=== PATIENT | male | born 1945 | race African-American/Black ===

== ENCOUNTER 2024-08-25 11:28 | Inpatient (IN) ==
[2024-08-25 16:03] LABS: ABS Eosinophils 0.1 10^3/uL (0.0-0.5); ABS Lymphocytes 1.6 10^3/uL (1.0-4.8); ABS Monocytes 0.4 10^3/uL (0.0-1.1); ABS Neutrophils 4.3 10^3/uL (1.5-7.6); ABS Nucleated RBC 0.01 10^3/ul; Hematocrit 34.6 % (38-53); Hemoglobin 11.3 g/dL (13.2-16.3); Lymphocyte % 25.1 %; Mean Corpuscular Hgb Conc 32.6 g/dL (31-36); Mean Corpuscular Volume 86.1 fL (80-97); Mean Platelet Volume 7.2 fL (7.5-11.2); Nucleated Red Blood Cells % 0.2 %/100WBC (0.0-0.8); Platelet Count 346 10^3/uL (150-450); Red Blood Count 4.02 10^6/uL (4.06-5.63); Red Cell Distribution Width 16.3 % (12-17); White Blood Count 6.4 10^3/uL (3.6-10.2)
[2024-08-25 16:07] LABS: INR 1.09 (0.85-1.14)
[2024-08-25 17:29] LABS: ALT 21 U/L (7-52); Albumin 4.1 g/dL (3.5-5.7); Albumin/Globulin Ratio 1.4 (1-3); Alkaline Phosphatase 133 U/L (35-149); Blood Urea Nitrogen 35 mg/dL (6-24); CO2 Carbon Dioxide 26 mmol/L (22-32); Calcium 9.7 mg/dL (8.6-10.3); Chloride 105 mmol/L (101-111); Globulin 2.9 g/dL (2-4); Glucose 74 mg/dL (70-100); Sodium 137 mmol/L (135-145); Total Bilirubin 0.5 mg/dL (0.2-1.0); eGFR CKD-EPI 51.4 (>60)
[2024-08-25 17:31] LABS: Anion Gap 6 mmol/L (2-16)
[2024-08-25 18:26] LABS: Hepatitis C Antibody Reactive (Negative)
[2024-08-25] MEDS: HYDROmorphone 0.5 MG/0.5 ML SYRINGE IV SLOW PU PRN (18:32)
[2024-08-25 19:09] LABS: Potassium Redraw 4.4 mmol/L (3.5-5.0)
[2024-08-25] MEDS: Senna TAB 8.6 mg TAB PO SCH (21:24)
[2024-08-25] MEDS: Heparin 5000 UNITS/ML 1 mL VIAL SUBCUT SCH (21:26)
[2024-08-25] MEDS: Polyethylene Glycol 3350 17 GM PACKET PO SCH (21:26)
[2024-08-26 06:25] LABS: Hematocrit 33.9 % (38-53); Mean Corpuscular Hemoglobin 27.5 pg (27-33); Mean Corpuscular Hgb Conc 32.4 g/dL (31-36); Mean Corpuscular Volume 84.9 fL (80-97); Mean Platelet Volume 7.6 fL (7.5-11.2); Platelet Count 329 10^3/uL (150-450); Red Cell Distribution Width 16.7 % (12-17); White Blood Count 5.8 10^3/uL (3.6-10.2)
[2024-08-26 06:32] LABS: Calcium 8.9 mg/dL (8.6-10.3); Creatinine, Serum 1.42 mg/dL (0.67-1.17); Potassium 4.5 mmol/L (3.5-5.0); eGFR CKD-EPI 50.6 (>60)
[2024-08-26] MEDS: Buprenorp/Nalox 8-2 MG FILM SL SCH (08:18)
[2024-08-26] MEDS ORDERED: Albuterol HFA INHALER 8 gm MDI INH PRN (15:19)
[2024-08-27 06:08] LABS: ABS Eosinophils 0.1 10^3/uL (0.0-0.5); ABS Lymphocytes 1.8 10^3/uL (1.0-4.8); ABS Monocytes 0.4 10^3/uL (0.0-1.1); ABS Neutrophils 4.1 10^3/uL (1.5-7.6); Eosinophil % 1.9 %; Hemoglobin 11.2 g/dL (13.2-16.3); Mean Corpuscular Hemoglobin 27.3 pg (27-33); Mean Corpuscular Hgb Conc 32.2 g/dL (31-36); Mean Corpuscular Volume 84.9 fL (80-97); Mean Platelet Volume 7.7 fL (7.5-11.2); Nucleated Red Blood Cells % 0.1 %/100WBC (0.0-0.8); Platelet Count 369 10^3/uL (150-450); Red Blood Count 4.12 10^6/uL (4.06-5.63); Red Cell Distribution Width 16.3 % (12-17); White Blood Count 6.5 10^3/uL (3.6-10.2)
[2024-08-27 06:24] LABS: Calcium 9.5 mg/dL (8.6-10.3); Creatinine, Serum 1.34 mg/dL (0.67-1.17); Magnesium 2.1 mg/dL (1.9-2.7); Potassium 4.5 mmol/L (3.5-5.0); eGFR CKD-EPI 54.2 (>60)
[2024-08-27] MEDS ORDERED: Bupivacaine 0.25% EPI 200,000 30 ML SDV ONE (07:30)
[2024-08-27] MEDS ORDERED: ceFAZolin 2 GM PREMIX 2 GM/50 ML BAG ONE (08:04)
[2024-08-27] MEDS ORDERED: Midazolam 2 mg/2 ml VIAL 1 mg/ml 2 ml VIAL (2 mg) ONE (08:26)
[2024-08-27] MEDS ORDERED: fentaNYL 100 mcg/2 ml 50 MCG/ML VIAL ONE ×7 (08:26→12:45)
[2024-08-27] MEDS ORDERED: Lidocaine 2% PF 5 ML VIAL ONE ×2 (08:26→09:38)
[2024-08-27] MEDS ORDERED: Rocuronium 50 mg VIAL 10 mg/ml 5 ml VIAL (50 mg) ONE (08:47)
[2024-08-27] MEDS ORDERED: Dexamethasone IV 4 MG/ML VIAL 1 ml VIAL ONE (08:47)
[2024-08-27] MEDS ORDERED: Ondansetron 4 mg VIAL 2 MG/ML 2 ml VIAL ONE (08:47)
[2024-08-27] MEDS ORDERED: Propofol 10 MG/ML 20 ML BTL ONE (08:47)
[2024-08-27] MEDS ORDERED: Dexmedetomidine 200 mcg/2 ml 2 ml VIAL (200 mcg) ONE (09:29)
[2024-08-27] MEDS ORDERED: Ondansetron 4 mg VIAL 2 MG/ML 2 ml VIAL IV PRN (09:54)
[2024-08-27] MEDS ORDERED: Naloxone 0.4 mg VIAL 0.4 mg/ml 1 ml VIAL IV PRN (09:54)
[2024-08-27] MEDS ORDERED: Bupivacaine 0.25% w/EPI 10 ML SDV ONE (11:28)
[2024-08-27] MEDS: fentaNYL 100 mcg/2 ml 50 MCG/ML VIAL IV PRN ×2 (11:57→12:55)
[2024-08-27] MEDS ORDERED: Acetaminophen IV 1 GM/100ML 1,000 MG/100 ML BAG IV ONE (12:51)
[2024-08-27] MEDS: ceFAZolin 1 GM ADVAN 1 GM in NS 0.9% 50 ML 50 ML IVPB SCH (16:45)
[2024-08-28] MEDS: HYDROmorphone 0.5 MG/0.5 ML SYRINGE IV SLOW PU PRN (00:30)
[2024-08-28] MEDS ORDERED: HYDROmorphone 0.5 MG/0.5 ML SYRINGE IV SLOW PU PRN (00:37)
[2024-08-28 06:01] LABS: Hematocrit 32.2 % (38-53); Hemoglobin 10.6 g/dL (13.2-16.3); Mean Corpuscular Hemoglobin 27.8 pg (27-33); Mean Corpuscular Hgb Conc 32.9 g/dL (31-36); Mean Corpuscular Volume 84.7 fL (80-97); Mean Platelet Volume 7.7 fL (7.5-11.2); Platelet Count 369 10^3/uL (150-450); Red Cell Distribution Width 16.4 % (12-17); White Blood Count 8.2 10^3/uL (3.6-10.2)
[2024-08-28 06:09] LABS: Calcium 8.7 mg/dL (8.6-10.3); Creatinine, Serum 1.45 mg/dL (0.67-1.17); Magnesium 1.9 mg/dL (1.9-2.7); Potassium 4.2 mmol/L (3.5-5.0); eGFR CKD-EPI 49.3 (>60)
[2024-08-28 07:18] LABS: ABS Lymphocytes 1.2 10^3/uL (1.0-4.8); ABS Monocytes 0.7 10^3/uL (0.0-1.1); ABS Neutrophils 6.3 10^3/uL (1.5-7.6); ABS Nucleated RBC 0.01 10^3/ul; Eosinophil % 0.2 %; Lymphocyte % 14.1 %; Nucleated Red Blood Cells % 0.1 %/100WBC (0.0-0.8)
[2024-08-28] MEDS: Lactated Ringers 1000 ml BAG 1,000 ML IV SCH (09:01)
[2024-08-29 06:22] LABS: ABS Eosinophils 0.1 10^3/uL (0.0-0.5); ABS Lymphocytes 1.6 10^3/uL (1.0-4.8); ABS Monocytes 0.8 10^3/uL (0.0-1.1); ABS Neutrophils 5.3 10^3/uL (1.5-7.6); Eosinophil % 0.7 %; Hematocrit 27.9 % (38-53); Hemoglobin 9.3 g/dL (13.2-16.3); Lymphocyte % 20.3 %; Mean Corpuscular Hemoglobin 28.4 pg (27-33); Mean Corpuscular Hgb Conc 33.3 g/dL (31-36); Mean Corpuscular Volume 85.1 fL (80-97); Mean Platelet Volume 7.6 fL (7.5-11.2); Platelet Count 296 10^3/uL (150-450); Red Blood Count 3.28 10^6/uL (4.06-5.63); Red Cell Distribution Width 16.6 % (12-17); White Blood Count 7.8 10^3/uL (3.6-10.2)
[2024-08-30 05:23] VITALS: BP 129/61
[2024-08-30 05:55] LABS: ABS Eosinophils 0.1 10^3/uL (0.0-0.5); ABS Lymphocytes 1.8 10^3/uL (1.0-4.8); ABS Monocytes 0.7 10^3/uL (0.0-1.1); ABS Neutrophils 6.3 10^3/uL (1.5-7.6); ABS Nucleated RBC 0.01 10^3/ul; Eosinophil % 0.9 %; Hematocrit 30.8 % (38-53); Lymphocyte % 20.1 %; Mean Corpuscular Hemoglobin 27.7 pg (27-33); Mean Corpuscular Hgb Conc 32.4 g/dL (31-36); Mean Corpuscular Volume 85.7 fL (80-97); Mean Platelet Volume 7.4 fL (7.5-11.2); Nucleated Red Blood Cells % 0.1 %/100WBC (0.0-0.8); Platelet Count 326 10^3/uL (150-450); Red Cell Distribution Width 16.6 % (12-17); White Blood Count 8.9 10^3/uL (3.6-10.2)
[2024-08-30 06:34] LABS: Creatinine, Serum 1.23 mg/dL (0.67-1.17); Potassium 4.5 mmol/L (3.5-5.0); eGFR CKD-EPI 60.1 (>60)
== END 2024-08-30 08:00 | DRG 308 ==
LOC: EDHOLD 11:28 → ED 11:28 → SUATTDRO 16:42 → EDHOLD 19:38 → SSU 19:52
PROVIDERS: ADMIT Internal Medicine; ATTEND Student in an Organized Health Care Education/Training Program